=== PATIENT | male | born 1990 | race African-American/Black ===

== ENCOUNTER 2021-02-18 09:46 | Emergency (ER) | payer MEDICAID, OTHER ==
[~2021-02-18] VITALS: Ht 175.3 cm; Wt 79.0 kg
[2021-02-18 09:55] VITALS: BP 159/105
[2021-02-18] MEDS ORDERED: LIDOCAINE HCL 1% 20ML VIAL (Pyxis) INJ INFIL ONE (11:00)
[2021-02-18] MEDS ORDERED: SENNOSIDES/DOCUSATE SOD 8.6/50MG TABLET PO ONE (11:00)
[2021-02-18] MEDS ORDERED: CEFTRIAXONE SODIUM 1 G/VIAL IM ONE (11:00)
[2021-02-18] MEDS ORDERED: POLY10DR3 EACHEYE (11:09)
[2021-02-18] MEDS ORDERED: AMOX-424 MT (11:09)
[2021-02-18] MEDS ORDERED: SENN-257 MT (11:09)
[2021-02-18] MEDS ORDERED: ANUHCC TP (11:09)
[2021-02-18] MEDS: LIDOCAINE HCL 1% 10 MG/ML 10ML VIAL IJ NR ×2 (11:49→11:50)
[2021-02-21 08:10] LABS: NEISSERIA GONORRHOEAE NAA Negative (Negative)
== END 2021-02-18 12:16 | disposition home or self-care (01) ==
LOC: ER 10:02
DX: H10.9 Unspecified conjunctivitis (principal); K59.00 Constipation, unspecified; A64 Unspecified sexually transmitted disease; Z88.0 Allergy status to penicillin
CPT/HCPCS: 87491; 87591; 96372; 99283; J0696; J3490